=== PATIENT | male | born 1995 | race Caucasian/White ===

== ENCOUNTER → 2017-07-31 | Outpatient (CLI) | payer OTHER ==
[~2017-07-31] MED LIST: AZIT500 PO; BENZ100A PO; Bactrim Ds Tab1 EACH PO; CEPH500 PO; CIPR500 PO; CODACE30 PO; CRUTCH4 USE; CYCL10 PO; Cleocin HCl150 MG PO; Cleocin HCl300 MG PO; Crutch1 EACH MISC; HYDACE5 PO; HYOS.125 SL; IBUP400 PO; IBUP600 PO; IBUP800 PO; LOPE2C PO; NAPR500 PO; Norco 5-325 Ta1 EACH PO; OMEGA 3; ONDA4ODT MM; PROM25 PO; RXCODACET PO; RXONDA4ODT MM; SULTRIDS PO; Ultram50 MG PO
[2017-08-02 13:33] LABS: MDA Not Detected (NOTDET); MDEA Not Detected (NOTDET); MDMA Not Detected (NOTDET)
[2017-08-02 14:20] LABS: Codeine Not Detected (NOTDET); Hydrocodone Not Detected (NOTDET); Hydromorphone 61 ng/mL (NOTDET); Morphine 2257 ng/mL (NOTDET); Norhydrocodone Not Detected (NOTDET); Noroxycodone Not Detected (NOTDET)
== END ==
LOC: LAB 11:00
PROVIDERS: Family Medicine
DX: Z51.81 Encounter for therapeutic drug level monitoring (principal); F11.20 Opioid dependence, uncomplicated; Z79.899 Other long term (current) drug therapy
CPT/HCPCS: G0480

== ENCOUNTER 2019-03-21 13:03 | Emergency (ER) | payer OTHER ==
[~2019-03-21] VITALS: Ht 188 cm; Wt 111.6 kg
[2019-03-21] MEDS ORDERED: Bactrim Ds Tab1 EACH PO (14:20)
== END 2019-03-21 14:30 | disposition home or self-care (01) ==
LOC: ER 13:03
DX: L02.416 Cutaneous abscess of left lower limb (principal); L03.116 Cellulitis of left lower limb; Z88.0 Allergy status to penicillin; F17.200 Nicotine dependence, unspecified, uncomplicated; J45.909 Unspecified asthma, uncomplicated
CPT/HCPCS: 99282

== ENCOUNTER 2024-07-15 19:52 | Emergency (ER) | payer OTHER ==
[~2024-07-15] VITALS: Ht 188 cm; Wt 127.0 kg
[2024-07-15 20:16] VITALS: BP 151/96
[2024-07-15 20:57] LABS: CORONAVIRUS COVID-19 AG Negative (NEGATIVE); INFLUENZA A AG Negative (NEGATIVE); INFLUENZA B AG Negative (NEGATIVE)
[2024-07-16] MEDS ORDERED: RX Prepack Albuterol 1 PREPACK/6.7 GM INH UD ONE (00:40)
[2024-07-16] MEDS ORDERED: Azithromycin 250 MG Tab PO ONE (00:40)
[2024-07-16] MEDS ORDERED: AZIT250 PO (00:40)
[2024-07-16] MEDS ORDERED: RX Prepack 2 Tabs Ondansetron ODT 4MG UD ONE (00:40)
== END 2024-07-16 00:55 | disposition home or self-care (01) ==
LOC: ER 19:52
PROVIDERS: Student in an Organized Health Care Education/Training Program
DX: J18.9 Pneumonia, unspecified organism (principal); J45.909 Unspecified asthma, uncomplicated; F17.200 Nicotine dependence, unspecified, uncomplicated; Z88.0 Allergy status to penicillin
CPT/HCPCS: 19001; 71046; 87428-QW; 99283-25; A9270

== ENCOUNTER 2025-02-09 22:44 | Emergency (ER) | payer OTHER ==
[~2025-02-09] VITALS: Ht 188 cm; Wt 129.3 kg
[~2025-02-09 22:44] MED LIST changes: +AZIT250 PO
[2025-02-09 22:54] VITALS: BP 131/86
== END 2025-02-10 00:49 | disposition home or self-care (01) ==
LOC: ER 22:44
DX: S61.210A Laceration without foreign body of right index finger without damage to nail, initial encounter (principal); S61.212A Laceration without foreign body of right middle finger without damage to nail, initial encounter; S91.111A Laceration without foreign body of right great toe without damage to nail, initial encounter; W25.XXXA Contact with sharp glass, initial encounter; Z88.0 Allergy status to penicillin
CPT/HCPCS: 12002; 73130; 73660; 90715; 99282-25